=== PATIENT | male | born 1980 | race Caucasian/White ===

== ENCOUNTER 2018-12-04 07:50 | Emergency (ER) | payer SELFPAY ==
--- NOTE | 2018-12-04 08:27 | RAD ---
LEFT SHOULDER THREE VIEWS: 12/04/18 HISTORY: Patient fell two and a half weeks ago. Pain. FINDINGS: Glenohumeral joint space is preserved. No fracture or dislocation. The visualized left ribs and clav icle are unremarkable. IMPRESSION: No posttraumatic change. POS: [facility]
[2018-12-04] MEDS ORDERED: Ketorolac Tromethamine 60 MG/2 ML VIAL ONE (11:09)
== END 2018-12-04 11:30 | disposition home or self-care (01) ==
LOC: ERS 07:50
DX: M25.512 Pain in left shoulder (principal); V19.9XXA Pedal cyclist (driver) (passenger) injured in unspecified traffic accident, initial encounter
CPT/HCPCS: 96372; J1885